=== PATIENT | male | born 1935 | race Caucasian/White ===

== ENCOUNTER 2023-12-05 12:52 | Emergency (ER) | payer MEDICARE, OTHER, SELFPAY ==
[2023-12-05 12:54] VITALS: BP 123/69
[2023-12-05] MEDS: ADACEL 0.5 ML IM (14:06)
--- NOTE | 2023-12-05 14:15 | ED.GENMED ---
History of Present Illness
General
Chief Complaint: Fall
Source: patient and spouse
Exam Limitations: none
Time Seen by Provider: 12/05/23 13:26
Nursing documentation reviewed up to this point in time: agreed with
Travel History
Have you had any contact with someone who has COVID-19?: No
Do you have any symptoms of coronavirus? Fever > 100 degrees, chills, cough, shortness of breath, sore throat, loss of taste or smell, muscle aches, or headache?: No
History of Present Illness
History of Present Illness:
88-year-old male with a past medical history of hypertension, CHF, atrial fibrillation on Eliquis, chronic kidney disease who presents to the emergency department with his for evaluation after trip and fall. Patient reports that he tripped on
a [employer] outside and fell forward and hit his face on a bucket. He says he did not pass out or lose consciousness. He was able to get up on his own and ambulatory after the fall. He says he sustained some minor scrapes to his knees and
sustained some abrasions to the nose on the left side of his face as well as some bruising in the face. Given that he is on Eliquis he came to the emergency room to be assessed. He denies any headache. Denies any neck pain. Denies any chest or
abdominal pain. Denies any back pain. He denies any significant pain in his extremities. No numbness or weakness in the extremities. He denies any other complaints.
Past History
Past History
ED Past Medical History: Arrthythmia, Cancer, CHF, GERD, HTN and Other (Gout, chronic kidney disease)
ED Past Surgical History: Orthopedic and Other (Lung resection)
Social History
Tobacco: Former smoker
Alcohol: Occasional
Drug: None
Personal:
Living: with family
Employment: Retired
Family History
Family History: Other (Noncontributory)
Review of Systems
Review of Systems
All Other Systems: ROS reviewed and negative except as documented in HPI and ROS
Respiratory: Denies trouble breathing
Cardiac: Denies chest pain
ABD/GI: Denies abdominal pain, nausea or vomiting
: Denies flank pain
Musculoskeletal: Denies joint pain, neck pain or back pain
Neurological: Denies dizzy, headache, weakness or numbness
Phy Exam
Physical Exam
Physical Exam:
General: Awake, alert, oriented x3; no acute distress
Head: Normocephalic, patient has some left maxillary ecchymosis, abrasion to the bridge of the nose as well as abrasions to the left cheek
Eyes: Conjunctiva normal, EOMI, pupils equal round reactive to light bilaterally
Throat: Airway intact, handling secretions, tongue atraumatic
Neck: Trachea midline, no cervical spine tenderness
Lungs: Breathing comfortably not in distress
Heart: Regular rate; no chest wall tenderness
Abd: Soft, non distended, nontender
Neuro: Cranial nerves grossly intact, speech fluid, motor and sensory function intact, ambulatory
Skin: Abrasions to the face as above; he has some minor abrasions to the left knee; old appearing bruising scattered on the arms
Extremities: Skin findings on extremities as above; he has no swelling or deformity of the extremities, no reproducible tenderness in extremities, full range of motion in the upper and lower extremities without discomfort, ambulatory
Scores
Heart Failure Risk
Heart Failure Risk Score: Not Applicable
Heart Score for Chest Pain Patients
STEMI patient?: Not applicable
Withdrawal Assessment of Alcohol
Withdrawal Assessment Completed?: Not applicable
Course
Orders/Labs/Results
Orders:
Orders
12/05/23 12:56
CT Head W/o Iv Contrast Urgent
Comment:
Reason For Exam: fall, head injury, blood thinners
12/05/23 13:26
CT Cervical Spine W/o Iv Contr Urgent
Comment:
Reason For Exam: fall with frontal headstrike on AC
12/05/23 13:47
Wound Dressing- Treatment ONCE
Location of Wound: face
Tetanus/Diphth/Acelpertussis [Adacel] 0.5 ml IM .ONCE ONE
Vital Signs
Initial and Last Documented VS:
Initial Vital Signs
Temp Pulse Resp BP Pulse Ox
36.4 C 81 18 123/69 98
12/05/23 12:54 12/05/23 12:54 12/05/23 12:54 12/05/23 12:54 12/05/23 12:54
Last Documented Vital Signs
Temp Pulse Resp BP Pulse Ox
36.4 C 81 18 123/69 98
12/05/23 12:54 12/05/23 12:54 12/05/23 12:54 12/05/23 12:54 12/05/23 12:54
MDM/Problems Addressed
Differential Diagnosis Includes:
Facial fracture, intracranial hemorrhage, cervical spine injury; facial contusion
MDM/Problems Addressed:
88-year-old male presents for evaluation after mechanical trip and fall with frontal/facial trauma. No LOC. Vitals are within normal limits. Exam as above. Will check CT head and cervical spine. Will wash and dress abrasions. Will update
tetanus. Reassess after the above.
CT head and cervical spine negative for any acute pathology. Patient remains awake and alert with normal vitals. Plan to discharge, follow-up with PCP. Advised regarding wound care. Spoke about return precautions and all questions answered.
Chronic conditions affecting care:
History of A-fib on Chel[place] complicates his fall
*Radiology
Radiology exam reviewed: radiology read reviewed
*Pulse Oximetry
Patient hypoxic: no
*Critical Care Note
Total Time (30-74mins, 75-104mins- exclusive of procedures): Not Applicable
Data Reviewed
Source: patient and spouse
ED Attending Note
-
Portions of this chart may have been created with voice recognition software.� Occasional wrong word or��sound alike� substitutions may have occurred due to the inherent limitations of voice recognition software.
Discharge Plan
Departure
Patient Disposition: Home (Routine Discharge)
Date of Disposition: 12/05/23
Time of Disposition: 14:59
Patient with high blood pressure during this ER visit?: No
Discharge Problem:
Abrasion of face, Abrasion of knee, Fall
Instructions: Head Injury in Adults (DC), Preventing falls in adults, Skin Abrasions (DC)
Prescriptions:
No Action
allopurinol 100 MG tablet
100 mg PO HS Qty: 0
pantoprazole 40 MG tablet,delayed release (DR/EC)
40 mg PO HS Qty: 0
atorvastatin 20 MG tablet
20 mg PO HS Qty: 0
Eliquis 2.5 mg Tablet
2.5 mg PO BID 30 Days Qty: 60 0RF
Hold Instructions: Resume on 08/07/22.
isosorbide mononitrate 30 mg Tablet Extended Release 24 Hr
30 mg PO DAILY 30 Days Qty: 30 0RF
hydralazine 10 mg Tablet
10 mg PO BID
carvedilol 25 mg Tablet
25 mg PO BID
torsemide 20 mg tablet
20 mg PO Q OTHER DAY
potassium chloride [Klor-Con M20] 20 mEq tablet,ER particles/crystals
20 meq PO Q OTHER DAY
cephalexin 250 mg Capsule
250 mg PO BID
Referrals:
Uriel Hou DO [Family Provider] - Follow up in 5-7 days
Activity Restrictions/Additional Instructions:
Thank you for visiting the Emergency Department at [facility].
1. Please schedule a follow up appointment as directed. Call first thing tomorrow morning to make an appointment.
2. If indicated, please take your medications as instructed and indicated on discharge paperwork.
3. If any of your symptoms do not improve, or persist, or become more severe within 6-12 hours, please return to the emergency department for further care.
4. Please return to the emergency department if you develop a headache, neck pain/stiffness, fever greater than 100.4F, chest pain, shortness of breath, persistent nausea, vomiting, slurred speech, difficulty walking, numbness/tingling, weakness,
signs of infection or any other symptoms that are worrisome to you.
Please call [phone] if you have any questions.
Interventions
Interventions:
*Risk Screen - Suicide Last Done: 12/05/23 14:41
*General Assessment Last Done: 12/05/23 14:41
*Neglect/Abuse Screening Last Done: 12/05/23 14:41
ED-Musculoskeletal Assessment Last Done: 12/05/23 14:41
ED- Neurological Assessment Last Done: 12/05/23 14:41
ED-Skin Assessment Last Done: 12/05/23 14:41
Discharge Date and Time
Print Language: MOHAWK
== END 2023-12-05 15:13 | disposition home or self-care (01) ==
LOC: EMR 12:52
PROVIDERS: EMERGENCY PHYSICIAN Emergency Medicine; FAMILY PHYSICIAN Family Medicine
DX: S00.31XA Abrasion of nose, initial encounter (principal); S80.219A Abrasion, unspecified knee, initial encounter; S00.81XA Abrasion of other part of head, initial encounter; S00.83XA Contusion of other part of head, initial encounter; W01.0XXA Fall on same level from slipping, tripping and stumbling without subsequent striking against object, initial encounter; Z23 Encounter for immunization; I13.0 Hypertensive heart and chronic kidney disease with heart failure and stage 1 through stage 4 chronic kidney disease, or unspecified chronic kidney disease; I50.9 Heart failure, unspecified; N18.9 Chronic kidney disease, unspecified; I48.91 Unspecified atrial fibrillation; K21.9 Gastro-esophageal reflux disease without esophagitis; Z79.01 Long term (current) use of anticoagulants; Z87.891 Personal history of nicotine dependence
CPT/HCPCS: 99284; 90471; 70450; 72125; 90715

== ENCOUNTER 2024-01-16 11:34 | Inpatient (IN) | payer MEDICARE, OTHER, SELFPAY ==
[2024-01-16 10:11] VITALS: BP 104/56
[2024-01-16 10:29] VITALS: BMI 25.4
--- NOTE | 2024-01-16 10:38 | ED.GENMED ---
History of Present Illness
General
Chief Complaint: Weakness
Source: patient
Time Seen by Provider: 01/16/24 10:16
History of Present Illness
History of Present Illness:
88-year-old male with past medical history of atrial fibrillation, cardiomyopathy/CHF, hypertension, status post pacemaker/defibrillator placement, chronic kidney disease presenting to the emergency department for evaluation of gradually worsening
generalized fatigue and weakness that have been ongoing for the last month or so. Patient was at his vba developer office 2 days ago for some swelling to his lower legs that has been present and not getting better despite diuretics which normally
help. Patient states he has not had any chest pain, shortness of breath, exertional dyspnea/orthopnea, PND, fevers, chills, rigors, abdominal pain, nausea/vomiting or bowel changes or any other concerns. Patient notes that he had a left AV fistula
created a little over a year ago, this has not been used but patient and state that his vba developer had been talking about starting dialysis if symptoms were not any better which is why they presented to the ER today.
Past History
Past History
ED Past Medical History: Arrthythmia, Cancer, CHF, GERD, HTN and Other (Gout, chronic kidney disease)
ED Past Surgical History: Orthopedic and Other (Lung resection)
Social History
Tobacco: Former smoker
Alcohol: Occasional
Drug: None
Personal:
Living: with family
Employment: Retired
Family History
Family History: Other (Noncontributory)
Review of Systems
Review of Systems
All Other Systems: ROS reviewed and negative except as documented in HPI and ROS
Phy Exam
Physical Exam
Physical Exam:
GENERAL: Alert , in no apparent distress
EYE: Clear conjunctiva
NECK: Supple
ENT: o/p clr, mmm.
CARDIAC: Irregularly irregular rate and rhythm
LUNGS: Clear breath sounds bilaterally, no acute respiratory distress, no wheezes/rales/rhonchi
ABDOMEN: Soft, without focal tenderness, no r/g, no cvat
NEUROLOGICAL: Alert and oriented
SKIN: Warm and dry, skin intact.
MUSCULOSKELETAL: 1+ lower extremity edema to the mid tibia bilateral, well perfused. Left upper extremity AV fistula with palpable thrill
PSYCH: Normal and appropriate interaction.
Scores
Heart Failure Risk
Heart Failure Risk Score: Not Applicable
Heart Score for Chest Pain Patients
STEMI patient?: Not applicable
Withdrawal Assessment of Alcohol
Withdrawal Assessment Completed?: Not applicable
Course
Orders/Labs/Results
Orders:
Orders
01/16/24 10:33
Electrocardiogram (*1) Urgent
Reason for Study: Fatigue / Weakness
EKG- Treatment ONCE
01/16/24 10:35
Type+Screen Urgent
Complete Blood Count/With Diff Urgent
Comprehensive Metabolic Panel Urgent
Magnesium Urgent
TSH Urgent
Troponin I Urgent
01/16/24 11:05
Sodium Chloride [Sodium Chloride 4 Meq/ml For Hemodialysis] 10 ml IV HD-Q1HPRN PRN
Hemodialysis treatment As Directed
Treatment date:: 01/16/24
Treatment type: Hemodialysis
Ultrafiltration (kg): None
Treatment time (duration): 2 hours 15 minutes
Use dialysis access:: AVF
Dialyzer:: Optiflux 160
Blood flow rate minimum: 200
Blood flow rate maximum: 200
Dialysis flow rate: 600 mL/min
Dialysate temperature: 37 degrees Celsius
Sodium (Na): 137
Potassium (K): 3
Calcium (Ca): 2.5
Bicarbonate (HCO3): 37
01/16/24 11:08
Iron Urgent
Comment: pre-Hemodialysis lab, to be drawn by HD nurse
Phosphorus Urgent
Comment: pre-Hemodialysis lab, to be drawn by HD nurse
Total Iron Binding Urgent
Comment: pre-Hemodialysis lab, to be drawn by HD nurse
01/16/24 11:09
Ferritin Urgent
Comment: pre-Hemodialysis lab, to be drawn by HD nurse
Hepatitis B Core Ab, Total Urgent
Comment: pre-Hemodialysis lab, to be drawn by HD nurse
Hepatitis B Surface Antibody Urgent
Comment: pre-Hemodialysis lab, to be drawn by HD nurse
Hepatitis B Surface Antigen Urgent
Comment: pre-Hemodialysis lab, to be drawn by HD nurse
Hepatitis C Antibody Urgent
Comment: pre-Hemodialysis lab, to be drawn by HD nurse
01/16/24 11:10
Intact PTH Includes Calcium Urgent
Comment: pre-Hemodialysis lab, to be drawn by HD nurse
01/16/24 11:27
Admit/Transfer Patient As Directed
Co-Sign Provider:
Level of Care: Inpatient admission
Assign to:: Medical/Surgical
Physician / Group: Casey
Diagnosis: ESRD, HD start
Reason for Hospitalization: ESRD, HD start
Expected length of stay greater than two midnights?: Yes
ELOS- Estimated Length of Stay in days: 5
I certify the patient meets the requirements for IP care: Yes
01/16/24 11:29
Code Status As Directed
Resuscitation Status: Do not resuscitate
Reached after discussion with pt or family/Healthcare POA: Yes
DNR Bracelet Application ONCE
01/16/24 12:00
Mannitol 25% 12.5 grams IV HD-Q1H
01/16/24 12:46
Bisacodyl [Dulcolax] 10 mg RECTAL [id number] PRN
Docusate W/Senna [Senokot-S] 1 tablet PO BIDPRN PRN
Metolazone [Zaroxolyn] 2.5 mg PO Q OTHER DAY
Polyethylene Glycol Powder [Miralax] 17 grams PO DAILYPRN PRN
01/16/24 12:46
Activity As Directed
Activity Level: With Assistance
Vital Signs As Directed
Frequency: Per unit guidelines
01/16/24 Dinner
Cholesterol Lowering
Cholesterol Lowering: Sodium, 2 Gram
01/16/24 18:00
ISOSORBIDE MONOnitrate ER [Imdur (Extended Release)] 30 mg PO QPM
01/16/24 20:00
Apixaban [Eliquis] 2.5 mg PO BID
Carvedilol [Coreg] 12.5 mg PO BID
01/16/24 22:00
Allopurinol [Zyloprim] 100 mg PO HS
Atorvastatin [Lipitor] 20 mg PO HS
Pantoprazole [Protonix] 20 mg PO HS
01/17/24 06:00
Basic Metabolic Panel IN AM
Complete Blood Count/No Diff IN AM
01/17/24 08:00
Potassium Chloride [KCl] 20 meq PO DAILY
Torsemide [Demadex] 10 mg PO DAILY
Abnormal Lab Results
01/16/24
10:35
WBC 4.6 L 10^3/uL
(4.8-10.8)
RBC 3.48 L 10^6/uL
(4.70-6.10)
Hgb 10.6 L g/dL
(13.0-18.0)
Hct 32.0 L %
(39.0-52.0)
RDW 14.9 H %
(11.5-14.5)
Plt Count 125 L 10^3/uL
(130-400)
MPV 12.0 H fL
(7.4-10.4)
Absolute Lymphs (auto) 0.9 L 10^3/uL
(1.2-3.4)
Lymphocytes % 18.6 L %
(20.5-51.1)
Chloride 97 L mmol/L
(98-107)
BUN 101 H* mg/dl
(9-20)
Creatinine 3.8 H mg/dL
(0.7-1.3)
Glucose 151 H mg/dl
(70-99)
ALT 86 H U/L
(0-50)
Troponin I 0.059 H* ng/ml
Total Protein 5.5 L g/dl
(6.3-8.2)
Albumin 3.4 L g/dl
(3.5-5.0)
TSH 6.41 H uIU/ml
(0.47-4.68)
01/16/24 10:35
01/16/24 10:35
Vital Signs
Initial and Last Documented VS:
Initial Vital Signs
Temp Pulse Resp BP Pulse Ox
98.1 F 104 16 104/56 95
01/16/24 10:11 01/16/24 10:11 01/16/24 10:11 01/16/24 10:11 01/16/24 10:11
Last Documented Vital Signs
Temp Pulse Resp BP Pulse Ox
98.1 F 104 16 104/56 95
01/16/24 10:11 01/16/24 10:11 01/16/24 10:11 01/16/24 10:11 01/16/24 10:11
MDM/Problems Addressed
Differential Diagnosis Includes:
Worsening renal dysfunction, electrolyte disturbance, less concern for viral syndrome or infectious etiology
MDM/Problems Addressed:
88-year-old male with multiple chronic cardiac and renal dysfunction presenting to the emergency department for evaluation of worsening generalized fatigue and lower extremity edema. Patient saw vba developer 2 days ago and had discussed possibly
initiating dialysis if symptoms were not any better and patient and note that symptoms seem to be worsening despite his diuretics. Blood pressure is slightly low in triage and has a mildly elevated heart rate. He notes that he had labs done
at [facility] 2 weeks ago but currently unsure of what these results were. Will recheck labs including a type and screen, TSH and cardiac evaluation. Once labs resulted plan to discuss with nephrology for treatment and disposition planning.
Chronic conditions affecting care: Kidney disease
Acute Exacerbation and/or Progression of Chronic Illness: Kidney disease
*Pulse Oximetry
Patient hypoxic: no
*Critical Care Note
Total Time (30-74mins, 75-104mins- exclusive of procedures): Not Applicable
Data Reviewed
Review of Other/Old Records Reveals: Labs and Records
Source: patient, records and spouse
Patient Management
Discussion with other providers: Hospitalist and Utility Engineer
Escalation/DeEscalation of care consider admission/obs:
Nephrology was already aware of patient en route to the emergency department and saw the patient in the ER. They are planning to initiate dialysis today. Would like patient to be admitted to hospitalist service and they will continue to follow
along during the admission and consultation. Hospitalist team was notified and accepts for continued evaluation and treatment.
ED Attending Note
-
Portions of this chart may have been created with voice recognition software.� Occasional wrong word or��sound alike� substitutions may have occurred due to the inherent limitations of voice recognition software.
Discharge Plan
Departure
Patient Disposition: Admit
Date of Disposition: 01/16/24
Time of Disposition: 11:02
Presentation/result/management discussed w/ accepting MD/DO: Hospitalist
Discharge Problem:
CKD (chronic kidney disease)
Interventions
Interventions:
ED- Cardiac Assessment Last Done: 01/16/24 10:38
ED- Neurological Assessment Last Done: 01/16/24 10:38
ED- Pulmonary Assessment Last Done: 01/16/24 10:38
[2024-01-16 10:47] LABS: % Basophils 0.4 % (0-2); % Eosinophils 2.2 % (0-6); % Immature Granulocytes 0.2 % (0-0.5); % Lymphocytes 18.6 % (20.5-51.1); % Monocytes 8.6 % (1.7-9.3); Absolute Eosinophils 0.1 10^3/uL (0-0.7); Absolute Lymphocytes 0.9 10^3/uL (1.2-3.4); Absolute Monocytes 0.4 10^3/uL (0.1-0.6); Absolute Neutrophils 3.2 10^3/uL (1.4-6.5); Hemoglobin 10.6 g/dL (13.0-18.0); Mean Corp Hgb Conc. 33.1 g/dL (33.0-37.0); Mean Corpuscular Hgb 30.5 pg (27.0-31.0); Nucleated Red Blood Cells % 0 % (-); Platelet Count 125 10^3/uL (130-400); Red Blood Cell Count 3.48 10^6/uL (4.70-6.10); Red Cell Dist. Width 14.9 % (11.5-14.5); White Blood Cell Count 4.6 10^3/uL (4.8-10.8)
[2024-01-16 11:03] LABS: ALT (SGPT) 86 U/L (0-50); AST (SGOT) 57 U/L (17-59); Albumin 3.4 g/dl (3.5-5.0); Alkaline Phosphatase 100 U/L (38-126); Blood Urea Nitrogen 101 mg/dl (9-20); Calcium 8.7 mg/dl (8.4-10.2); Carbon Dioxide 30 mmol/L (22-30); Chloride 97 mmol/L (98-107); Estimated Creatinine Clearance 14 ml/min; Glucose 151 mg/dl (70-99); Potassium 3.7 mmol/L (3.5-5.1); Sodium 136 mmol/L (135-145); Total Bilirubin 1.1 mg/dl (0.2-1.3); Total Protein 5.5 g/dl (6.3-8.2); eGFR 14.68
--- NOTE | 2024-01-16 11:10 | W.CON.NEPH ---
Consultation
-
Date/Time Consultation Requested: 01/16/2024 11:00 AM
Date/Time Consultation Performed: 01/16/2024 11:00 AM
Requesting Provider: Dr. Peña
Performing Provider: Dr. Barrientos
Reason for Consultation: End-stage renal disease
Medical History
-
Chief Complaint: CKD stage V/ESRD
History of Present Illness:
Patient is an 88-year-old male directed to the emergency room from our office for the initiation of dialysis. He has been having increased weight gains fatigue and weakness and decreasing efficacy of his diuretics. He is now admitted to the
hospital for initiation of dialysis via his left upper extremity AV fistula
Past Medical History
CKD stage V/renal cystic disease
Congestive heart failure
Atrial fibrillation
Left upper extremity AV fistula
Dyslipidemia
Cardiomyopathy EF 30%
History of VT with indwelling ICD
Gout
History of lung cancer status postresection in
Bladder cancer status post TURBT in 1983
Secondary hyperparathyroidism
Excision right long finger bone 2012
Social History
Tobacco: Former Smoker
Alcohol: Occasional
Family History
No CKD or polycystic kidney disease
Allergies / Home Medications
Allergy/AdvReac Type Severity Reaction Status Date / Time
No Known Allergies Allergy Verified 01/16/24 10:13
�Medication �Instructions �Recorded �Confirmed �Type
allopurinol 100 mg tablet 100 mg PO HS Gout ##0 03/02/16 01/16/24 History
pantoprazole 40 mg tablet,delayed 20 mg PO HS Gastrointestinal issue 03/02/16 01/16/24 History
release ##0
atorvastatin 20 mg tablet 20 mg PO HS High cholesterol ##0 03/05/16 01/16/24 History
apixaban 2.5 mg tablet (Eliquis) 2.5 mg PO BID 30 days #60 tabs 01/12/22 01/16/24 Rx
isosorbide mononitrate 30 mg 30 mg PO DAILY 30 days #30 tabs 01/12/22 01/16/24 Rx
tablet,extended release 24 hr
carvedilol 25 mg tablet 12.5 mg PO BID 08/02/22 01/16/24 History
potassium chloride 20 mEq 20 meq PO DAILY 08/02/22 01/16/24 History
tablet,extended
release(part/cryst) (Klor-Con M)
torsemide 20 mg tablet 20 mg PO Q OTHER DAY 08/02/22 01/16/24 History
metolazone 2.5 mg tablet 2.5 mg PO Q OTHER DAY 01/16/24 01/16/24 History
Review of Systems
-
All other systems: Negative unless noted
Constitutional: Weight Gain and Fatigue
EENT: No Symptoms
Respiratory: Other (Dyspnea on exertion)
Cardiac: No Symptoms
Abdomen/GI: No Symptoms
: No Symptoms (Some decreased urine output)
Musculoskeletal: Edema
Skin: No Symptoms
Neurological: No Symptoms (No asterixis)
Endocrine: No Symptoms
Hematologic/Lymphatic: No Symptoms
Physical Exam
Vital Signs
Vital Signs
Temp Pulse Resp BP Pulse Ox
98.1 F 104 16 104/56 95
01/16/24 10:11 01/16/24 10:11 01/16/24 10:11 01/16/24 10:11 01/16/24 10:11
Lab Results
WBC 4.6 10^3/uL (4.8-10.8) L 01/16/24 10:35
RBC 3.48 10^6/uL (4.70-6.10) L 01/16/24 10:35
Hgb 10.6 g/dL (13.0-18.0) L 01/16/24 10:35
Hct 32.0 % (39.0-52.0) L 01/16/24 10:35
Plt Count 125 10^3/uL (130-400) L 01/16/24 10:35
Sodium 136 mmol/L (135-145) 01/16/24 10:35
Potassium 3.7 mmol/L (3.5-5.1) 01/16/24 10:35
Chloride 97 mmol/L (98-107) L 01/16/24 10:35
Carbon Dioxide 30 mmol/L (22-30) 01/16/24 10:35
BUN 101 mg/dl (9-20) H* 01/16/24 10:35
Creatinine 3.8 mg/dL (0.7-1.3) H 01/16/24 10:35
eGFR 14.68 01/16/24 10:35
Glucose 151 mg/dl (70-99) H 01/16/24 10:35
Calcium 8.7 mg/dl (8.4-10.2) 01/16/24 10:35
Albumin 3.4 g/dl (3.5-5.0) L 01/16/24 10:35
Physical Exam
General: AOx3, Nontoxic , NAD
HEENT: PERRL, EOMI, Anicteric, Conjunctivae Clear, Ear/Nose Intact, Hearing Normal, Oropharynx Clear/Moist, Dentition Intact, Facial Symmetry, Neck Supple, Neck: Trachea Midline, No JVD and No Thyromegaly, no Bruits
Respiratory: Coarse to auscultation bilaterally with normal lung exersion
Cardiac: S1/S2 and Regular Rate/Rhythm
Breast: Deferred by me
Abdomen: Soft, Nontender, Nondistended, Normal Bowel Sounds and No Hepatosplenomegaly
Rectal: Deferred by Provider
Genito-urinary: No Costovertebral Tenderness
Extremities: No Clubbing, No Cyanosis and plus one edema
Skin: No Rash or open lesions, chronic venous stasis changes along lower extreme
Neuro: Nonfocal/Grossly Intact, CN II-XII (Intact) and Strength (Musculoskeletal exam 5 out of 5 both upper and lower extremities), no asterixis
Hematologic/Lymphatic: No Cervical Lymphadenopathy, No Submandibular Lymphadenopathy and No Supraclavicular Lymphadenopathy
Psych: Mood/afflect pleasant, Insight/judgement good and Appropriate
Vascular: plus 1pedal and radial pulses
Left upper extremity brachiocephalic AV fistula with good thrill and bruit
Vascular Access: AVF
Data Reviewed
-
Labs: Labs Reviewed by me ([facility])
Old Records: Reviewed (Reviewed former consult from January 10 2022)
Assessment/Plan
-
Impression:
CKD stage V now approaching ESRD
Chronic cardiorenal state
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
Severe cardiomyopathy, unspecified, with a known ejection
fraction of 30%.
Secondary hyperparathyroidism.
Anemia
Lung cancer status post resection 1986.
Bladder cancer status post transurethral resection of prostate
with cure 1983.
History of ventricular tachycardia.
Biventricular implantable cardioverter-defibrillator.
Gout.
Plan;
-Will initiate dialysis, orders provided
-Dialysis will be performed today tomorrow and Saturday
-Consult case management for dialysis placement at [facility] Saturday show
-Fluid restriction 1500 cc daily
-Low sodium and potassium diet\\
[2024-01-16 11:16] LABS: Troponin I 0.059 ng/ml
[2024-01-16 11:31] LABS: TSH 6.41 uIU/ml (0.47-4.68)
--- NOTE | 2024-01-16 11:31 | HPS.HSE ---
Family Physician
-
Family Physician: Uriel Hou
Chief Complaint
-
Fatigue, initiation of hemodialysis
History of Present Illness
88 y/o M with PMHx:
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
Chronic HFrEF s/p ICD
GERD
Hyperlipidemia
Gout
Essential hypertension
h/o VT s/p ICD
Paroxysmal atrial fibrillation
Lung cancer s/p resection 1986
Bladder cancer status post TURBT in 1983
who p/w with CC fatigue and is to start HD. Pt has AF fistula in place. Was sent by his glass mold repairer to the hospital to initiate hemodialysis. He has no other acute complaints. Denies chest pain, shortness of breath, headache, visual services,
neck stiffness, fever, nausea, vomiting, diarrhea, abdominal pain, strokelike symptoms, rash.
Medical History
Past Medical History
Past Medical History: Reports Other (as per HPI)
Past Surgical History: Reports Other (as per HPI, otherwise N/A)
Social History
Tobacco: Non-smoker
Alcohol: None
Drug: None
Family History
Family History: Not pertinent
Allergies / Home Medications
Allergies reflects when Allergies were last updated in [employer].
Home Medications with original date entered in [employer]
Allergy/Medication List:
Allergies
Allergy/AdvReac Type Severity Reaction Status Date / Time
No Known Allergies Allergy Verified 01/16/24 10:13
Home Medications
allopurinol 100 mg tablet 100 mg PO HS Gout ##0 03/02/16
pantoprazole 40 mg tablet,delayed release 20 mg PO HS Gastrointestinal issue ##0 03/02/16
atorvastatin 20 mg tablet 20 mg PO HS High cholesterol ##0 03/05/16
carvedilol 25 mg tablet 12.5 mg PO BID 08/02/22
potassium chloride 20 mEq tablet,extended release(part/cryst) (Klor-Con M) 20 meq PO DAILY 08/02/22
torsemide 20 mg tablet 10 mg PO DAILY 08/02/22
apixaban 2.5 mg tablet (Eliquis) 2.5 mg PO BID 01/16/24
isosorbide mononitrate 30 mg tablet,extended release 24 hr 30 mg PO QPM 01/16/24
metolazone 2.5 mg tablet 2.5 mg PO Q OTHER DAY 01/16/24
Review of Systems
-
History Source: Patient
A 12 point ROS was completed and negative except as noted: Yes
Physical Exam
Vital Signs
Vital Signs
Temp Pulse Resp BP Pulse Ox
98.1 F 104 16 104/56 95
01/16/24 10:11 01/16/24 10:11 01/16/24 10:11 01/16/24 10:11 01/16/24 10:11
Physical Exam
General: Other (.)
Laboratory Results
-
01/16/24 10:35
01/16/24 10:35
Laboratory Results
Total Bilirubin 1.1 mg/dl (0.2-1.3) 01/16/24 10:35
AST 57 U/L (17-59) 01/16/24 10:35
ALT 86 U/L (0-50) H 01/16/24 10:35
Alkaline Phosphatase 100 U/L (38-126) 01/16/24 10:35
Troponin I 0.059 ng/ml H* 01/16/24 10:35
Impression/Plan
-
Gen: NAD, Awake and alert, appears chronically ill.
Eyes: EOMI, PERRLA, no scleral icterus.
Neck: supple.
CV: irreg/irreg, +S1/S2, no m/r/g.
Resp: CTAB, no rales, wheezes, or rhonchi.
Abd: +BS, soft, NT, ND
Skin: No rashes. 1+ B/L ankle edema
Neuro: CN 2-12 intact, non-focal.
Psych: Normal mood and affect.
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
-initiate HD today vis LUE AVF
-c/s renal
Other problems:
Chronic HFrEF s/p ICD: cont BB/Imdur
GERD: cont PPI
Hyperlipidemia: cont statin
Gout: cont Allopurinol
Essential hypertension: cont BB
h/o VT s/p ICD: cont BB
Paroxysmal atrial fibrillation: cont BB/Eliquis
Lung cancer s/p resection 1986
Bladder cancer status post TURBT in 1983
DNR - confirmed with pt in ER
Eliquis
[2024-01-16 14:02] VITALS: BP 108/64
--- NOTE | 2024-01-16 14:28 | W.PN.NEPH.HD ---
Assessment
-
Patient seen on dialysis
Systolic blood pressure stable
Access on new AV fistula successful with good flows
Mannitol x 2 given to inhibit disequilibrium syndrome
Low QB
Next dialysis tomorrow
Progress Note - Hemodialysis
-
Date of Service: January 16, 2024
Duration: 2 hours
Potassium Bath: 3
Calcium Bath: 2.5
Opti-Dialyzer: 160
Ultrafiltration: Other (even)
Blood Flow: 200
Dialysate Flow: 600
Heparin: none
EPO: none
[2024-01-16] MEDS: MANNITOL 25% 12.5 GRAMS IV ×2 (14:56→15:53)
[2024-01-16 15:04] LABS: Calcium 8.5 mg/dl (8.4-10.2); Iron 43 ug/dl (49-181); Phosphorus 3.3 mg/dl (2.5-4.5)
[2024-01-16 15:12] LABS: Percent Saturation 12 % (20-50); Total Iron Binding Capacity 339 ug/dl (261-462)
[2024-01-16 15:16] LABS: Intact PTH 387.2 pg/ml (13.6-85.8)
[2024-01-16 15:19] VITALS: BMI 25.4
[2024-01-16 15:39] LABS: Ferritin 18.2 ng/ml (17.9-464.0)
[2024-01-16] MEDS: IMDUR (EXTENDED RELEASE) 30 MG PO (17:39)
[2024-01-16 18:48] LABS: Hepatitis B Surface Antigen Negative (Negative)
[2024-01-16 19:07] LABS: Hepatitis B Core Ab, Total Negative (Negative); Hepatitis B Surface Antibody Negative; Hepatitis C Antibody Negative (Negative)
[2024-01-16] MEDS: ELIQUIS 2.5 MG PO (20:30)
[2024-01-16] MEDS: COREG 12.5 MG PO (20:30)
[2024-01-16] MEDS: PROTONIX 20 MG PO (21:15)
[2024-01-16] MEDS: LIPITOR 20 MG PO (21:15)
[2024-01-16] MEDS: ZYLOPRIM 100 MG PO (21:17)
[2024-01-16 22:53] VITALS: BP 108/60
[2024-01-17 06:00] VITALS: BMI 24.5
[2024-01-17 07:05] LABS: Hemoglobin 10.2 g/dL (13.0-18.0); Mean Corp Hgb Conc. 32.9 g/dL (33.0-37.0); Mean Corpuscular Hgb 30.3 pg (27.0-31.0); Mean Platelet Volume 11.7 fL (7.4-10.4); Platelet Count 114 10^3/uL (130-400); Red Blood Cell Count 3.37 10^6/uL (4.70-6.10); Red Cell Dist. Width 14.9 % (11.5-14.5)
[2024-01-17 08:00] VITALS: BP 118/80
[2024-01-17 08:12] LABS: Blood Urea Nitrogen 73 mg/dl (9-20); Calcium 8.6 mg/dl (8.4-10.2); Carbon Dioxide 30 mmol/L (22-30); Chloride 100 mmol/L (98-107); Estimated Creatinine Clearance 15 ml/min; Glucose 90 mg/dl (70-99); Potassium 3.4 mmol/L (3.5-5.1); Sodium 136 mmol/L (135-145); eGFR 16.77
[2024-01-17] MEDS: MANNITOL 25% 12.5 GRAMS IV ×2 (08:20→09:54)
[2024-01-17] MEDS: RETACRIT 4000 UNITS IV (08:31)
--- NOTE | 2024-01-17 08:42 | W.PN.HOSP.TC ---
Addendum entered and electronically signed by Ron Peña MD 01/17/24 15:41:
Pancytopenia
Nonischemic myocardial injury
Original Note:
Today's Communication/Plan
-
see bold
Assessment / Plan
Assessment / Plan
Gen: NAD, Awake and alert, appears chronically ill.
Eyes: EOMI, PERRLA, no scleral icterus.
Neck: supple.
CV: RRR, +S1/S2, no m/r/g.
Resp: CTAB anteriorly, no rales, wheezes, or rhonchi.
Abd: +BS, soft, NT, ND
Skin: No rashes.
Neuro: CN 2-12 intact, non-focal.
Psych: Normal mood and affect.
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
-initiated on HD 01/16/24 LUE AVF
-renal following
Other problems:
Hypokalemia, treat via HD
Chronic HFrEF s/p ICD: cont BB/Imdur
GERD: cont PPI
Hyperlipidemia: cont statin
Gout: cont Allopurinol
Essential hypertension: cont BB
h/o VT s/p ICD: cont BB
Paroxysmal atrial fibrillation: cont BB/Eliquis
Lung cancer s/p resection 1986
Bladder cancer status post TURBT in 1983
DNR - confirmed with pt in ER
Eliquis
Anticipated Discharge: 24 - 48 hours
Subjective/Interval History
-
Date of Service: January 17, 2024
Patient states he feels tired.
Objective Data
-
Labs:
Laboratory Results
01/17/24
06:27
WBC 4.0 L
Hgb 10.2 L
Hct 31.0 L
Plt Count 114 L
Sodium 136
Potassium 3.4 L
Chloride 100
Carbon Dioxide 30
BUN 73 H
Creatinine 3.4 H
Glucose 90
Calcium 8.6
Vital Signs:
Vital Signs
Temp Pulse Resp BP Pulse Ox
97.7 F 66 18 118/80 96
01/17/24 08:00 01/17/24 08:00 01/17/24 08:00 01/17/24 08:00 01/17/24 08:00
I&O
01/16/24 01/17/24 01/18/24
06:59 06:59 06:59
Intake Total 1160 / 1160
Balance 1160 / 1160
--- NOTE | 2024-01-17 08:54 | W.PN.NEPH.HD ---
Assessment
-
Seen on HD. no complaints. VSS, access ok
HD tomorrow
Progress Note - Hemodialysis
-
Date of Service: January 17, 2024
Duration: 30 minutes and 2 hours
Potassium Bath: 3
Calcium Bath: 2.5
Opti-Dialyzer: 160
Ultrafiltration: Other (none)
Blood Flow: 250
Dialysate Flow: 600
Heparin: no
EPO: 4000
[2024-01-17] MEDS: ELIQUIS 2.5 MG PO ×2 (11:53→20:29)
[2024-01-17] MEDS: COREG 12.5 MG PO ×2 (11:54→20:29)
--- NOTE | 2024-01-17 14:53 | CM ---
Addendum entered by Ashley Cabrera 01/17/24 17:27:
faxed all clinicals including lab work to [facility].
Original Note:
met with patient at bedside.patient lives with in 2 story home with 2-3 steps to enter,his bed and bath is on the second level,he amb ,is I with his adl,he has no dme,his carola is poa.patient's pcp is dr montano and he uses [facility]
in [place].he has never had a vn or been to ip rehab.
past hx:ckd stage 5/esrd,lung c sp resection,
patient is adm with esrd and has a left ue av fistula.he is for hd today.patient already has a permanent chair at [facility] in [place] on t th sat at 11:30 am.i called to confirm chair time and was asked to fax info to adm.[facility] is
[phone] and fax is [phone].
--- NOTE | 2024-01-17 15:06 | PN.CDI ---
CDI
- -
CDI:
Physician Documentation Request
Admit Date: 01/16/24 11:34
Dear Doctor Casey,
Please review the following and provide your response in the progress notes.
Clinical Indicators:
Laboratory Tests
01/16/24
10:35
Troponin I 0.059 H*
Based on the above and your clinical assessment, please clarify in the progress notes, the appropriate diagnosis, if significant, that supports the above abnormalities and additional evaluation, monitoring and/or treatment rendered:
Non ischemic myocardial injury
Abnormal lab value, clinically insignificant
Other (please specify)
Use of terms such as suspected, likely, concern for, or probable (associated with a specific diagnosis that is being evaluated, monitored, or treated as if it exists) are acceptable and can be coded in the inpatient setting, when documented at the
time of discharge.
Thank you,
Deborah Louis RN BSN CCDS
CDI Specialist
Please contact via tiger text
Please use your independent medical judgment in providing your response.
--- NOTE | 2024-01-17 15:08 | PN.CDI ---
CDI
- -
CDI:
Physician Documentation Request
Admit Date: 01/16/24 11:34
Dear Doctor Casey,
Please review the following and provide your response in the progress notes.
Clinical Indicators:
Laboratory Tests
01/16/24 01/17/24
10:35 06:27
WBC 4.6 L 4.0 L
RBC 3.48 L 3.37 L
Plt Count 125 L 114 L
Based on the above and your clinical assessment, please clarify the appropriate diagnosis, if significant, that supports the above abnormalities and additional evaluation, monitoring and/or treatment rendered:
Pancytopenia
Abnormal lab values, clinically insignificant
Other (please specify)
Use of terms such as suspected, likely, concern for, or probable (associated with a specific diagnosis that is being evaluated, monitored, or treated as if it exists) are acceptable and can be coded in the inpatient setting, when documented at the
time of discharge.
Thank you,
Deborah Louis RN BSN CCDS
CDI Specialist
please contact via tiger text
Please use your independent medical judgment in providing your response.
[2024-01-17 15:20] VITALS: BP 107/68
[2024-01-17] MEDS: IMDUR (EXTENDED RELEASE) 30 MG PO (18:24)
[2024-01-17] MEDS: PROTONIX 20 MG PO (20:28)
[2024-01-17] MEDS: MELATONIN 3 MG PO (20:29)
[2024-01-17] MEDS: ZYLOPRIM 100 MG PO (20:29)
[2024-01-17] MEDS: LIPITOR 20 MG PO (20:29)
--- NOTE | 2024-01-17 22:44 | PTCARENOTE ---
Assumed care of pt from previous nurse. pt denies pain. pt call cordero is within reach, pt rings paulie. pt for dialysis tomorrow. will cont to monitor.
[2024-01-17 23:55] VITALS: BP 90/50
[2024-01-18] VITALS (8 sets, daily range): BP systolic 105–116; BP diastolic 59–71; PULSE 83; O2SAT 98; BMI 24.4
[2024-01-18] MEDS: MANNITOL 25% 12.5 GRAMS IV ×2 (08:25→09:12)
[2024-01-18] MEDS: RETACRIT 4000 UNITS IV (08:26)
[2024-01-18 08:35] LABS: Hematocrit 31.7 % (39.0-52.0); Hemoglobin 10.7 g/dL (13.0-18.0)
[2024-01-18 08:49] LABS: Carbon Dioxide 29 mmol/L (22-30); Chloride 100 mmol/L (98-107); Potassium 3.5 mmol/L (3.5-5.1); Sodium 136 mmol/L (135-145)
[2024-01-18] MEDS: COREG PO (09:13)
--- NOTE | 2024-01-18 11:02 | W.PN.HOSP.TC ---
Today's Communication/Plan
-
Medically cleared for discharge once outpatient hemodialysis is set up. Case management aware.
Assessment / Plan
Assessment / Plan
Gen: Remains NAD, Awake and alert, appears chronically ill.
Eyes: EOMI, PERRLA, no scleral icterus.
Neck: supple.
CV: Remains RRR, +S1/S2, no m/r/g.
Resp: Remains CTAB anteriorly, no rales, wheezes, or rhonchi.
Abd: +BS, soft, NT, ND
Skin: No rashes.
Neuro: CN 2-12 intact, non-focal.
Psych: Normal mood and affect.
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
-initiated on HD 01/16/24 LUE AVF
-renal following
Other problems:
Hypokalemia, resolved
Chronic HFrEF s/p ICD: cont BB/Imdur
GERD: cont PPI
Hyperlipidemia: cont statin
Gout: cont Allopurinol
Essential hypertension: cont BB
h/o VT s/p ICD: cont BB
Paroxysmal atrial fibrillation: cont BB/Eliquis
Lung cancer s/p resection 1986
Bladder cancer status post TURBT in 1983
Patient's updated at bedside.
DNR - confirmed with pt in ER
Eliquis
Anticipated Discharge: Today
Subjective/Interval History
-
Date of Service: January 18, 2024
No new complaints.
Objective Data
-
Labs:
Laboratory Results
01/18/24
08:15
Hgb 10.7 L
Hct 31.7 L
Sodium 136
Potassium 3.5
Chloride 100
Carbon Dioxide 29
Vital Signs:
Vital Signs
Temp Pulse Resp BP Pulse Ox
97.5 F 97 16 111/66 95
01/18/24 07:00 01/18/24 07:00 01/18/24 07:00 01/18/24 07:00 01/18/24 07:00
I&O
01/17/24 01/18/24 01/19/24
06:59 06:59 06:59
Intake Total 1160 / 1160 1560 / 1560
Balance 1160 / 1160 1560 / 1560
--- NOTE | 2024-01-18 11:06 | W.PN.NEPH.HD ---
Assessment
-
Seen on HD. no complaints except fatigue. VSS, access
await confirmation of chair time
Progress Note - Hemodialysis
-
Date of Service: January 18, 2024
Duration: 15 minutes and 3 hours
Potassium Bath: 3
Calcium Bath: 2.5
Opti-Dialyzer: 160
Ultrafiltration: Other (no)
Blood Flow: 350
Dialysate Flow: 600
Heparin: no
EPO: 4000 units
--- NOTE | 2024-01-18 15:46 | CM ---
SPoke to [facility]. COnfirmed 11:30 am chair for , , Saturday. MEt with patient and dgtr to confirm this. Dgtr will transport to HD.
[2024-01-18] MEDS: ELIQUIS PO (17:51)
[2024-01-18] MEDS: IMDUR (EXTENDED RELEASE) 30 MG PO (17:52)
[2024-01-18] MEDS: ZYLOPRIM 100 MG PO (21:03)
[2024-01-18] MEDS: LIPITOR 20 MG PO (21:04)
[2024-01-18] MEDS: PROTONIX 20 MG PO (21:04)
[2024-01-18] MEDS: MELATONIN 3 MG PO (21:04)
[2024-01-18] MEDS: COREG 12.5 MG PO (21:04)
[2024-01-18] MEDS: ELIQUIS 2.5 MG PO (21:04)
[2024-01-19 06:00] VITALS: BMI 24.5
[2024-01-19 07:00] VITALS: BP 114/76
--- NOTE | 2024-01-19 07:54 | W.PN.HOSP.TC ---
Today's Communication/Plan
-
d/c
Assessment / Plan
Assessment / Plan
Gen: Continues to remain NAD, Awake and alert, appears chronically ill.
Eyes: EOMI, PERRLA, no scleral icterus.
Neck: supple.
CV: Continues to remain RRR, +S1/S2, no m/r/g.
Resp: Continues to remain CTAB anteriorly, no rales, wheezes, or rhonchi.
Abd: +BS, soft, NT, ND
Skin: No rashes.
Neuro: CN 2-12 intact, non-focal.
Psych: Normal mood and affect.
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
-initiated on HD 01/16/24 LUE AVF
-renal following
-outpt HD has been set up
Other problems:
Hypokalemia, resolved
Chronic HFrEF s/p ICD: cont BB/Imdur
GERD: cont PPI
Hyperlipidemia: cont statin
Gout: cont Allopurinol
Essential hypertension: cont BB
h/o VT s/p ICD: cont BB
Paroxysmal atrial fibrillation: cont BB/Eliquis
Lung cancer s/p resection 1986
Bladder cancer status post TURBT in 1983
Family updated at bedside.
DNR - confirmed with pt in ER
Eliquis
Medically cleared for discharge.
Total time spent on d/c = 31 min. This included today's physical exam, progress note, review of laboratory and diagnostic data, preparation of discharge documents and prescriptions, and discussions about the pt's hospital course and discharge plan
with the patient and other medical record librarians teacher involved in the patient's care.
Anticipated Discharge: Today
Subjective/Interval History
-
Date of Service: January 19, 2024
No new complaints.
Objective Data
-
Vital Signs:
Vital Signs
Temp Pulse Resp BP Pulse Ox
98.0 F 98 18 107/61 98
01/18/24 23:44 01/18/24 21:19 01/18/24 23:44 01/18/24 21:19 01/18/24 23:44
I&O
01/18/24 01/19/24 01/20/24
06:59 06:59 06:59
Intake Total 1560 / 1560 540 / 540
Balance 1560 / 1560 540 / 540
--- NOTE | 2024-01-19 08:58 | W.PN.NEPH.PH ---
Today's Communication / Plan
-
dc
Assessment/Plan
-
Impression:
CKD stage V now approaching ESRD
Chronic cardiorenal state
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
Severe cardiomyopathy, unspecified, with a known ejection
fraction of 30%.
Secondary hyperparathyroidism.
Anemia
Lung cancer status post resection 1986.
Bladder cancer status post transurethral resection of prostate
with cure 1983.
History of ventricular tachycardia.
Biventricular implantable cardioverter-defibrillator.
Gout.
Plan;
dc
Next Saturday 11 AM [place]
-
-
Date of Service: January 19, 2024
CC / HPI / ROS
-
Chief Complaint:
ESRD
History of Present Illness:
BP stable
Tolerated dialysis yesterday
Hemoglobin stable at 10.7
Review of Systems:
No chest pain or shortness of breath
Anxious
Labs
-
Labs:
WBC 4.0 10^3/uL (4.8-10.8) L 01/17/24 06:27
RBC 3.37 10^6/uL (4.70-6.10) L 01/17/24 06:27
Hgb 10.7 g/dL (13.0-18.0) L 01/18/24 08:15
Hct 31.7 % (39.0-52.0) L 01/18/24 08:15
Plt Count 114 10^3/uL (130-400) L 01/17/24 06:27
Sodium 136 mmol/L (135-145) 01/18/24 08:15
Potassium 3.5 mmol/L (3.5-5.1) 01/18/24 08:15
Chloride 100 mmol/L (98-107) 01/18/24 08:15
Carbon Dioxide 29 mmol/L (22-30) 01/18/24 08:15
BUN 73 mg/dl (9-20) H 01/17/24 06:27
Creatinine 3.4 mg/dL (0.7-1.3) H 01/17/24 06:27
eGFR 16.77 01/17/24 06:27
Glucose 90 mg/dl (70-99) 01/17/24 06:27
Calcium 8.6 mg/dl (8.4-10.2) 01/17/24 06:27
Phosphorus 3.3 mg/dl (2.5-4.5) 01/16/24 14:25
Albumin 3.4 g/dl (3.5-5.0) L 01/16/24 10:35
Physical Exam
-
Vital Signs:
Vital Signs
Temp Pulse Resp BP Pulse Ox
98.2 F 97 18 114/76 96
01/19/24 07:00 01/19/24 07:00 01/19/24 07:00 01/19/24 07:00 01/19/24 07:00
Cardiovascular:: Regular rate and rhythm
Respiratory:: Bilateral: CTA
Lung Excursion:: Normal
Abdomen:: Nontender and Soft
Bowel Sounds:: Normal
Extremity Edema:: None: Bilateral:
[2024-01-19] MEDS: ELIQUIS 2.5 MG PO (09:15)
[2024-01-19] MEDS: COREG 12.5 MG PO (09:15)
--- NOTE | 2024-01-19 09:28 | CM ---
Met with patient and at bedside
Plan: discharge to home today; will transport home; scheduled for HD on Saturday @ [place]; aware of plan
IMM benefit explained; form signed @ 919
Plan: discharge to home today
--- NOTE | 2024-01-19 12:10 | W.DCSUMMARY ---
Discharge Summary
Discharge Data
Date of Admission: 01/16/24
Date of Discharge: 01/19/24
-
Pending Results: No
Hospital Course
Primary diagnoses:
End-stage renal disease due to polycystic kidney disease, initiation of hemodialysis
Secondary diagnoses:
Hypokalemia
Chronic heart failure with reduced ejection fraction s/p ICD
Gastroesophageal reflux disease
Hyperlipidemia
Gout
Essential hypertension
h/o ventricular tachycardia s/p ICD
Paroxysmal atrial fibrillation
Lung cancer s/p resection 1986
Bladder cancer status post transurethral resection of bladder tumor in 1983
Consultants:
Nephrology
Imaging:
None
Hospital course: 88-year-old male who was sent to the hospital to initiate hemodialysis. Hemodialysis was initiated and he tolerated dialysis well. Outpatient dialysis was set up for the patient and he was discharged in medically stable condition.
Discharge Plan
-
Patient Disposition: Home (Routine Discharge)
Discharge Diagnosis/Procedures: End-stage renal disease, initiation of hemodialysis
Condition: Good
Diet: Other diet
Additional Diets: 2g potassium, fluid restrict to 1500 cc/day
Activity: As tolerated
Driving Restrictions: As prior to admission
Blood Work: BMP and CBC in 1 week, prescription from PCP
Specialty Instructions: Weigh Daily- Call MD for wt gain/loss 3 lbs overnight/5 lbs in 1 week
Referrals:
Uriel Hou DO [Family Provider] - in less than 1 week
Prescriptions:
Continued
allopurinol 100 MG tablet
100 mg PO HS Qty: 0
pantoprazole 40 MG tablet,delayed release (DR/EC)
20 mg PO HS Qty: 0
atorvastatin 20 MG tablet
20 mg PO HS Qty: 0
carvedilol 25 mg Tablet
12.5 mg PO BID
isosorbide mononitrate 30 mg tablet extended release 24 hr
30 mg PO QPM
Eliquis 2.5 mg Tablet
2.5 mg PO BID
Discontinued
torsemide 20 mg tablet
10 mg PO DAILY
potassium chloride [Klor-Con M20] 20 mEq tablet,ER particles/crystals
20 meq PO DAILY
metolazone 2.5 mg Tablet
2.5 mg PO Q OTHER DAY
Discharge Orders:
Discharge Patient (As Directed); Ordered 01/19/24
Ordered By: Ron Peña
Discharge Date and Time
Discharge Date/Time: 01/19/24 09:46
Print Language: URDU
== END 2024-01-19 09:46 | disposition home or self-care (01) | DRG 291 ==
LOC: 3 WEST ACU 11:34
PROVIDERS: Physician Assistant Medical; Specialist; ADMITTING PHYSICIAN Internal Medicine; EMERGENCY PHYSICIAN Student in an Organized Health Care Education/Training Program; FAMILY PHYSICIAN Family Medicine; OTHER PHYSICIAN Specialist
PROC: 5A1D70Z Performance of Urinary Filtration, Intermittent, Less than 6 Hours Per Day (ICD-10-PCS; 2024-01-16)
DX: I13.2 Hypertensive heart and chronic kidney disease with heart failure and with stage 5 chronic kidney disease, or end stage renal disease (principal); N18.6 End stage renal disease; Q61.3 Polycystic kidney, unspecified; D61.818 Other pancytopenia; N25.81 Secondary hyperparathyroidism of renal origin; I50.22 Chronic systolic (congestive) heart failure; E87.6 Hypokalemia; K21.9 Gastro-esophageal reflux disease without esophagitis; E78.5 Hyperlipidemia, unspecified; I48.0 Paroxysmal atrial fibrillation; M1A.9XX0 Chronic gout, unspecified, without tophus (tophi); I5A Non-ischemic myocardial injury (non-traumatic); Z99.2 Dependence on renal dialysis; Z85.118 Personal history of other malignant neoplasm of bronchus and lung; Z85.51 Personal history of malignant neoplasm of bladder
CPT/HCPCS: 80048; 80051; 80053; 82728; 83540; 83550; 83735; 83970; 84100; 84443; 84484; 85014; 85018; 85025; 85027; 86704; 86706; 86803; 86850; 86900; 86901; 87070; 87340; 97116; 97162; 97166; 99285; G0257; Q5106

== ENCOUNTER → 2024-05-01 09:25 | Outpatient (REF) | payer MEDICARE, OTHER, SELFPAY | LOC: RAD 09:25 | PROVIDERS: ATTENDING PHYSICIAN Surgery Vascular Surgery; FAMILY PHYSICIAN Family Medicine; REFERRING PHYSICIAN Specialist | DX: I77.0 Arteriovenous fistula, acquired (principal) | CPT/HCPCS: 93990 ==

== ENCOUNTER 2024-05-11 10:52 | Day surgery (SDC) | payer MEDICARE, OTHER, SELFPAY ==
[2024-05-11] VITALS (14 sets, daily range): BP systolic 15–141; BP diastolic 63–86; BMI 24.3
[2024-05-11 11:20] LABS: Hematocrit 36.7 % (39.0-52.0); Hemoglobin 12.5 g/dL (13.0-18.0); Mean Corp Hgb Conc. 34.1 g/dL (33.0-37.0); Mean Corpuscular Hgb 32.4 pg (27.0-31.0); Mean Corpuscular Volume 95.1 fL (80.0-94.0); Mean Platelet Volume 10.4 fL (7.4-10.4); Platelet Count 146 10^3/uL (130-400); Red Blood Cell Count 3.86 10^6/uL (4.70-6.10); Red Cell Dist. Width 14.3 % (11.5-14.5); White Blood Cell Count 4.7 10^3/uL (4.8-10.8)
[2024-05-11 11:30] LABS: INR 1.45; PT 17.4 Sec (11.4-14.6)
[2024-05-11 11:31] LABS: APTT 30.2 Sec (23.4-35.0)
[2024-05-11 11:38] LABS: Blood Urea Nitrogen 66 mg/dl (9-20); Calcium 9.3 mg/dl (8.4-10.2); Carbon Dioxide 32 mmol/L (22-30); Chloride 96 mmol/L (98-107); Estimated Creatinine Clearance 10 ml/min; Glucose 103 mg/dl (70-99); Potassium 4.9 mmol/L (3.5-5.1); Sodium 141 mmol/L (135-145); eGFR 11.37
--- NOTE | 2024-05-11 14:35 | W.SUR.PREOP ---
Pre-Operative Surgical Note
-
I have examined this patient prior to the performance of the scheduled procedure.
The patient's condition is unchanged from the time of the current History and
Physical and the patient is able to undergo the scheduled procedure.
--- NOTE | 2024-05-11 16:31 | OR.RPT ---
Operative Report
Operative Report
Date of Operation: 05/11/2024
Pre Op Diagnosis: Poor fistula flow at hemodialysis
Post Op Diagnosis: Poor fistula flow at hemodialysis
Procedure:
1.) balloon angioplasty of venous outflow stenosis, left upper extremity brachiocephalic fistula (7 mm x 60 mm angioplasty balloon)
2.) diagnostic left upper extremity fistulogram
3.) Central venogram
4.) ultrasound-guided percutaneous access to the left upper extremity arteriovenous fistula
Surgeon: Gonzales Cordova III, MD
Airplane Mechanic Apprentice: Riley Wilson MD PhD, PGY2
Anesthesia: Sedation/local
Complications: None
Fluoroscopy:
11.1 minutes
30 mGy
6.67 DAP
History and Indications for Procedure: 88-year-old male with poor fistula flows reported that hemodialysis. He was brought to the operating room for a fistulogram and possible endovascular intervention
Procedure in Detail: Cresencio Cardona was correctly identified and placed supine on the operating table. After adequate induction of anesthesia the left arm was positioned, prepped and draped in the usual sterile fashion. Preoperative antibiotics were
administered. A timeout procedure was performed with the nursing and anesthesia staff confirming the patient�s identity as well as the nature and laterality of the procedure.
Intraoperative ultrasound was performed on the AV access. This was a left upper arm brachiocephalic arteriovenous fistula. Ultrasound demonstrated a patent fistula.
I identified a puncture site along the proximal venous outflow and infiltrated local anesthesia at this site. Under ultrasound guidance I accessed the vein with a micropuncture needle facing towards the upper arm and placed the micropuncture sheath.
I performed a fistulogram which demonstrated the following:
Fistulogram:
Patent fistula but sluggish flow. 2 areas of high-grade stenosis identified along the proximal venous outflow and the more distal venous outflow in the upper arm cephalic vein. Cephalic arch patent with no stenosis identified.
Central venogram:
Widely patent central veins with no stenosis identified.
Endovascular intervention:
Systemic heparin was administered. A short 6 Fr sheath was placed. Under roadmap guidance a glidewire and glide catheter were used to cross the stenosis. I then exchanged out for a Storq wire. I then brought a 7 mm x 60 mm mm angioplasty balloon
into position under roadmap guidance and centered this across the more distal cephalic vein stenosis. This was inflated to nominal pressure. Subsequent images demonstrated excellent technical result with a widely patent cephalic vein and no
significant residual stenosis identified. A reflux shot was performed while the balloon was inflated and demonstrated the more proximal stenosis. The arteriovenous anastomosis was widely patent with no stenosis at this location. Under roadmap
guidance we then repositioned the balloon to treat the more proximal venous stenosis. We used the same 7 mm balloon to treat the more proximal stenosis.
Completion fistulogram demonstrated an excellent technical result. Significantly improved flow through the fistula. Patent cephalic vein with no significant residual stenosis identified.
At the conclusion of the procedure a Monocryl suture was placed around the sheath puncture site. The sheath was removed and the suture secured. Protamine was administered. Hemostasis was achieved. A sterile dressing was applied.
The patient tolerated the procedure well and was taken to the PACU in stable condition
Attestation: I was present and responsible for the entire procedure
Signed:
Gonzales Cordova III, MD
[facility]
[phone] (szvn)
--- NOTE | 2024-05-11 17:05 | PTCARENOTE ---
Pt's states pt takes his eliquis after dialysis about 3pm and again at 6:30 pm on dialysis days. Tigertext sent to Dr Harmon. Dr Harmon states to have pt take eliquis after dialysis and then again at bedtime on dialysis days. On non dialysis days,
pt is to take his eliquis in AM and PM. Pt and pt's verbalize understanding of instructions given. Questions encouraged and answered.
--- NOTE | 2024-05-11 17:29 | PTCARENOTE ---
Received pt from PACU at 1652. Vital signs obtained prior to 1651 can not be verified by this user.
--- NOTE | 2024-05-11 20:32 | W.IMMPOSTOP ---
Surgical Immed Post Op Note
-
Primary Surgeon: Dr. Gonzales Cordova III, MD
Assisting Surgeon: Riley Wilson MD, PhD (PGY-2)
Pre-op Diagnosis: LUE fistula with poor flows
Post-op Diagnosis: LUE fistula with poor flows
Procedure Performed: fistulogram and central venogram; balloon angioplasty of fistula
Anesthesia Type: General
Specimen / Cultures: None
Estimated Blood Loss: Minimal
Complications: None
Operative Findings: The patient was brought to the OR and placed in the supine position. The left arm was abducted on an arm board. The patient was prepped and draped in usual sterile fashion. Micropuncture needle was used to access the LUE fistula
and a wire was advanced into the fistula. A short 6French sheath was advanced over the wire. Venogram was performed and showed one area of proximal stenosis in the fistula, two areas of distal stenosis in the fistula, and normal central veins.
Balloon angioplasty of the venous outflow stenosis was performed using a 7x60mm angioplasty balloon. Then a balloon angioplasty was performed at the proximal site of narrowing. At the completion of the procedure, completion venogram showed
improvement in the caliber of the fistula and there was a return of a palpable thrill along the entire length of the fistula. The sheath was removed and the patient was transported to the PACU in stable condition.
== END 2024-05-11 17:35 | disposition home or self-care (01) ==
LOC: CATH 10:52
PROVIDERS: ATTENDING PHYSICIAN Surgery Vascular Surgery; FAMILY PHYSICIAN Family Medicine; OTHER PHYSICIAN Internal Medicine
DX: T82.858D Stenosis of other vascular prosthetic devices, implants and grafts, subsequent encounter (principal); Y83.2 Surgical operation with anastomosis, bypass or graft as the cause of abnormal reaction of the patient, or of later complication, without mention of misadventure at the time of the procedure; I13.2 Hypertensive heart and chronic kidney disease with heart failure and with stage 5 chronic kidney disease, or end stage renal disease; N18.6 End stage renal disease; I50.22 Chronic systolic (congestive) heart failure; Z99.2 Dependence on renal dialysis; I11.0 Hypertensive heart disease with heart failure
CPT/HCPCS: 36902; 80048; 85027; 85610; 85730; 93005; C1725; C1769; C1894

== ENCOUNTER 2024-10-04 10:56 | Emergency (ER) | payer MEDICARE, OTHER, SELFPAY ==
[2024-10-04 11:02] VITALS: BP 111/74
[2024-10-04 12:27] LABS: Urine Albumin 4+ (Neg - Trace); Urine Bilirubin 1+ (Negative); Urine Character Cloudy (Clear); Urine Glucose Negative (Negative); Urine Ketone Negative (Negative); Urine Leukocyte 3+ (Negative); Urine Nitrite Negative (Negative); Urine Occult Blood 4+ (Negative); Urine Urobilinogen Negative (Neg - 1+)
[2024-10-04 12:28] LABS: Urine Color Brown
--- NOTE | 2024-10-04 12:42 | ED.GENMED ---
History of Present Illness
General
Chief Complaint: Urinary Symptoms
Source: patient and family
Time Seen by Provider: 10/04/24 11:37
History of Present Illness
History of Present Illness:
This is a 88-year-old male who presents with generalized weakness. Also has had urinary urgency for maybe up to a week. Patient does not make much urine. Has been weak over the last several months. Patient states that he is on dialysis. Has an
echocardiogram planned for this week. No fevers. No vomiting. spouse states that patient went to see the primary care doctor on Saturday was given Levaquin. She became nervous about some of the side effects listed and did not start it. She also
felt like she was not really sure when he should take it. The patient denies vomiting. No abdominal pain. On my evaluation the patient states that he has no symptoms. Specifically no pain or nausea.
Past History
Past History
ED Past Medical History: Arrthythmia, Cancer, CHF, GERD, HTN and Other (Gout, chronic kidney disease dialysis Saturday)
ED Past Surgical History: Orthopedic and Other (Lung resection)
Social History
Tobacco: Former smoker
Alcohol: Occasional
Drug: None
Personal:
Living: with family
Employment: Retired
Family History
Family History: Other (Noncontributory)
Phy Exam
Physical Exam
Physical Exam:
CONSTITUTIONAL Patient alert and oriented to person, place and time. Vital signs reviewed. Thin
HEAD atraumatic, normocephalic.
EYES eyelids normal to inspection, Extraocular muscles intact, Conjunctiva normal, Sclera normal.
NECK normal range of motion, Trachea midline, no jugular venous distention.
RESPIRATORY CHEST No respiratory distress noted, Chest expansion equal, Bilateral breath sounds clear.
CARDIOVASCULAR irregularly irregular
ABDOMEN abdomen nontender, Bowel sounds normal. No distention.
UPPER EXTREMITY range of motion normal, Motor strength normal, no cyanosis, no edema. Left upper extremity AVG, no redness or swelling
LOWER EXTREMITY range of motion normal, Motor strength normal, no cyanosis, no edema.
NEURO Speech normal, No focal motor deficits, Zain coma scale 15, Memory normal, Cranial Nerves intact to screening exam.
SKIN skin warm, dry, and normal in color.
Course
Orders/Labs/Results
Orders:
Orders
10/04/24 12:14
Urinalysis Reflex To Culture Urgent
Date Specimen was Collected: 10/04/24
Time Specimen was Collected: 11:59
Urine Microscopic Reflex Cult Urgent
Urine Culture Urgent
CALLUM Source: U
Specimen Description:
Date Specimen was Collected: 10/04/24
Time Specimen was Collected: 11:59
10/04/24 12:56
Complete Blood Count/With Diff Urgent
Comprehensive Metabolic Panel Urgent
10/04/24 12:57
LevoFLOXacin [Levaquin] 500 mg PO NOW STA
Abnormal Lab Results
10/04/24 10/04/24
12:14 12:56
RBC 4.53 L 10^6/uL
(4.70-6.10)
MCV 97.8 H fL
(80.0-94.0)
MCH 32.0 H pg
(27.0-31.0)
MCHC 32.7 L g/dL
(33.0-37.0)
RDW 15.2 H %
(11.5-14.5)
Plt Count 113 L 10^3/uL
(130-400)
MPV 10.6 H fL
(7.4-10.4)
Absolute Lymphs (auto) 1.0 L 10^3/uL
(1.2-3.4)
Absolute Monos (auto) 0.8 H 10^3/uL
(0.1-0.6)
Lymphocytes % 15.3 L %
(20.5-51.1)
Monocytes % 11.5 H %
(1.7-9.3)
Ur Occult Blood Reflex 4+ A
(Negative)
Urine Bilirubin 1+ A
(Negative)
Leukocyte Esterase Rfl 3+ A
(Negative)
Urine WBC (Reflex) >100 A /HPF
(0-5)
Urine Bacteria (Reflex) Moderate A
(Negative)
Urine Albumin (Reflex) 4+ A
(Neg - Trace)
10/04/24 12:56
Vital Signs
Initial and Last Documented VS:
Initial Vital Signs
Temp Pulse Resp BP Pulse Ox
97.5 F 77 16 111/74 99
10/04/24 11:02 10/04/24 11:02 10/04/24 11:02 10/04/24 11:02 10/04/24 11:02
Last Documented Vital Signs
Temp Pulse Resp BP Pulse Ox
97.5 F 77 16 111/74 99
10/04/24 11:02 10/04/24 11:02 10/04/24 11:02 10/04/24 11:02 10/04/24 11:02
MDM/Problems Addressed
Differential Diagnosis Includes:
Anemia, chronic renal failure, electrolyte disturbance, sepsis, UTI
MDM/Problems Addressed:
Urinary tract infection
*Pulse Oximetry
Patient hypoxic: no
*Critical Care Note
Total Time (30-74mins, 75-104mins- exclusive of procedures): Not Applicable
Data Reviewed
Review of Other/Old Records Reveals: Labs (Prior microbiology reviewed and negative blood cultures in the past. Negative urine culture on February 2016)
Patient Management
Escalation/DeEscalation of care consider admission/obs:
Question whether weakness can be multifactorial. Check labs to rule out severe anemia. May be related to UTI. I do think that Levaquin is reasonable and will likely advise that if urine does suggest infection. Patient already has a prescription
filled for Levaquin. Patient will follow-up with his PCP and does appear well. Afebrile
ED Attending Note
-
Portions of this chart may have been created with voice recognition software.� Occasional wrong word or��sound alike� substitutions may have occurred due to the inherent limitations of voice recognition software.
Discharge Plan
Departure
Patient Disposition: Home (Routine Discharge)
Date of Disposition: 10/04/24
Time of Disposition: 13:18
Patient with high blood pressure during this ER visit?: No
Discharge Problem:
Urinary tract infection, End stage chronic kidney disease
Instructions: Urinary Tract Infection, Adult (DC)
Prescriptions:
No Action
allopurinol 100 MG tablet
100 mg PO HS Qty: 0
pantoprazole 40 MG tablet,delayed release (DR/EC)
20 mg PO HS Qty: 0
atorvastatin 20 MG tablet
20 mg PO HS Qty: 0
carvedilol 25 mg Tablet
6.25 mg PO BID
Rx Instructions:
Take bid on SUMOWEFR; Take in pm on TUTHSA
isosorbide mononitrate 30 mg tablet extended release 24 hr
30 mg PO QPM
Eliquis 2.5 mg Tablet
2.5 mg PO BID
midodrine 5 mg Tablet
5 mg PO DIRECTED
Rx Instructions:
Take 1/2 hour prior to dialysis
lidocaine-prilocaine 2.5-2.5 % Cream
1 applic TOPICAL DIRECTED
Rx Instructions:
with dialisys
Referrals:
Uriel Hou DO [Family Provider] -
Activity Restrictions/Additional Instructions:
Please take your Levaquin every 48 hours (after dialysis) as discussed for the next 1 week. Please see your doctor in the next 1 week for follow-up and reevaluation and to discuss whether it should be continued. Return immediately for vomiting,
worsening symptoms, fevers, abdominal pain or any other concerns.
Interventions
Interventions:
*Risk Screen - Suicide Last Done: 10/04/24 13:07
*General Assessment Last Done: 10/04/24 13:07
*Neglect/Abuse Screening Last Done: 10/04/24 13:07
*ED- Fall Risk Assessment Last Done: 10/04/24 13:07
ED-Male Genitourinary Assessment Last Done: 10/04/24 13:07
Discharge Date and Time
Print Language: SERBIAN
[2024-10-04 12:46] LABS: Urine Squamous Cell 0-2 /LPF (Few); Urine White Cell >100 /HPF (0-5)
[2024-10-04 12:47] LABS: Urine Bacteria Moderate (Negative)
[2024-10-04 13:13] LABS: % Basophils 0.5 % (0-2); % Eosinophils 0.8 % (0-6); % Immature Granulocytes 0.2 % (0-0.5); % Lymphocytes 15.3 % (20.5-51.1); % Monocytes 11.5 % (1.7-9.3); % Neutrophils 71.7 % (42.2-75.2); Absolute Eosinophils 0.1 10^3/uL (0-0.7); Absolute Monocytes 0.8 10^3/uL (0.1-0.6); Absolute Neutrophils 4.7 10^3/uL (1.4-6.5); Hematocrit 44.3 % (39.0-52.0); Hemoglobin 14.5 g/dL (13.0-18.0); Mean Corp Hgb Conc. 32.7 g/dL (33.0-37.0); Mean Corpuscular Volume 97.8 fL (80.0-94.0); Mean Platelet Volume 10.6 fL (7.4-10.4); Nucleated Red Blood Cells % 0 % (-); Platelet Count 113 10^3/uL (130-400); Red Blood Cell Count 4.53 10^6/uL (4.70-6.10); Red Cell Dist. Width 15.2 % (11.5-14.5); White Blood Cell Count 6.6 10^3/uL (4.8-10.8)
[2024-10-04] MEDS: LEVAQUIN 500 MG PO (13:19)
[2024-10-04 13:22] LABS: ALT (SGPT) 41 U/L (0-50); AST (SGOT) 30 U/L (17-59); Albumin 3.8 g/dl (3.5-5.0); Alkaline Phosphatase 117 U/L (38-126); Blood Urea Nitrogen 42 mg/dl (9-20); Calcium 9.3 mg/dl (8.4-10.2); Carbon Dioxide 29 mmol/L (22-30); Chloride 99 mmol/L (98-107); Glucose 127 mg/dl (70-99); Potassium 4.5 mmol/L (3.5-5.1); Sodium 140 mmol/L (135-145); Total Bilirubin 1.9 mg/dl (0.2-1.3); eGFR 12.31
[2024-10-04 13:23] VITALS: BP 103/79
== END 2024-10-04 13:56 | disposition home or self-care (01) ==
LOC: EMR 10:56
PROVIDERS: EMERGENCY PHYSICIAN Emergency Medicine; FAMILY PHYSICIAN Family Medicine; OTHER PHYSICIAN Internal Medicine
DX: N39.0 Urinary tract infection, site not specified (principal); N18.6 End stage renal disease; I50.9 Heart failure, unspecified; Z87.891 Personal history of nicotine dependence; Z99.2 Dependence on renal dialysis
CPT/HCPCS: 99283; 80053; 81003; 81015; 85025; 87077; 87086; 87186

== ENCOUNTER → 2024-10-07 11:07 | Outpatient (REF) | payer MEDICARE, OTHER, SELFPAY | LOC: HWRCS 11:07 | PROVIDERS: ATTENDING PHYSICIAN Internal Medicine; FAMILY PHYSICIAN Family Medicine | DX: I95.9 Hypotension, unspecified (principal); I48.19 Other persistent atrial fibrillation; I42.9 Cardiomyopathy, unspecified | CPT/HCPCS: 93306 ==